=== PATIENT | male | born 1985 ===

== ENCOUNTER 2022-11-18 11:51 | Day surgery (SDC) | payer BC, OTHER ==
[2022-11-17 15:35] LABS: Absolute Lymphocytes (CBC) 1.5 K/uL (0.7-4.9); Lymphocytes % 23.3 % (15.3-44.8); MCV 76.4 fL (80-100); MPV 8.8 fL (7.6-11.3); Platelets 260 thou/uL (152-406); RBC Red Blood Cell Count 5.75 M/uL (4.33-5.43)
[2022-11-17 15:48] LABS: Potassium 3.9 mEq/L (3.5-5.1)
--- NOTE | 2022-11-17 17:01 | RAD REPORT ---
EXAM DESCRIPTION: RAD - Chest Pa And Lat (2 Views) - 11/17/2022 3:29 pm CLINICAL HISTORY: PRE OP. Hypertension COMPARISON: CHEST PA AND LAT 2 VIEW dated 09/05/2011; ABDOMEN ACUTE SERIES dated 12/18/2010 TECHNIQUE: PA and lateral views of the chest were obtained. FINDINGS: The lungs are clear. Heart size is normal and central vasculature is within normal limits. No pleural effusion or pneumothorax seen. No acute bony finding noted. IMPRESSION: No acute cardiopulmonary process.
[2022-11-18] MEDS ORDERED: Ringers Lactate 1,000 ML IV ONE ×2 (12:12→16:45)
[2022-11-18] MEDS ORDERED: METHYLPREDNISOLONE 125 MG INJ ONE (12:27)
[2022-11-18] MEDS ORDERED: ROCURONIUM 50 MG/5 ML VIAL IV ONE (13:42)
[2022-11-18] MEDS ORDERED: ONDANSETRON 4 MG/2 ML VIAL ONE (13:42)
[2022-11-18] MEDS ORDERED: LIDOCAINE 2% MPF 5 ML VIAL ONE (13:42)
[2022-11-18] MEDS ORDERED: KETOROLAC 30 MG/ML INJ ONE (13:42)
[2022-11-18] MEDS ORDERED: dexAMETHasone 10 MG/ML VIAL ONE (13:42)
[2022-11-18] MEDS ORDERED: propofoL 200 MG/20 ML VIAL IV ONE (13:42)
[2022-11-18] MEDS ORDERED: MIDAZOLAM HCL 2 MG/2 ML INJ ONE (13:42)
[2022-11-18] MEDS ORDERED: FENTANYL CITR 100 MCG/2 ML ONE ×2 (13:42→16:01)
[2022-11-18] MEDS: CEFAZOLIN SODIUM 1 GM/VIAL ONE ×2 (14:01→14:32)
[2022-11-18] MEDS ORDERED: NS 0.9% VIAL 10 ML ONE (14:29)
[2022-11-18] MEDS ORDERED: GLYCOPYRROLATE 0.2 MG/ML SYR ONE (15:12)
[2022-11-18] MEDS ORDERED: NEOSTIGMINE 1 MG/ML -10 ML VIAL ONE (15:12)
[2022-11-18] MEDS ORDERED: Mastisol Adhesive Liq ONE (15:13)
[2022-11-18] MEDS ORDERED: SUGAMMADEX SODIUM 200 MG/2 ML VIAL IV ONE (15:17)
[2022-11-18] MEDS: HYDROMORPHONE HCL 1 MG/ML INJ ONE ×2 (15:20→15:25)
--- NOTE | 2022-11-18 15:28 | P.BOP ---
Preoperative diagnosis: incarcerated left inguinal hernia Postoperative diagnosis: same Primary procedure: Open repair of incarcerattedleft inguinal hernia with mesh Estimated blood loss: <10cc Specimen: lipoma pf cord Findings: LAparoscopic attempted repair but unable to continue safely Anesthesia: General Complications: None Transferred to: Recovery Room Condition: Good
[2022-11-18] MEDS: MIDAZOLAM HCL 2 MG/2 ML INJ ONE ×2 (15:30→15:40)
[2022-11-18] MEDS ORDERED: HYDROCODONE/APAP 10/325 TAB ONE (16:30)
[2022-11-18 17:34] VITALS: BP 130/71; TEMP 97; O2SAT 100
--- NOTE | 2022-11-20 15:35 | EKG ---
Test Date: 2022-11-17 Test Time: 15:16:28 Weekend Anchor: ABRAHAM MEASUREMENT RESULTS: Intervals: Rate: 77 ME: 138 QRSD: 90 QT: 404 QTc: 457 Lehr: P: 71 ME: 138 QRS: 89 T: 11 INTERPRETIVE STATEMENTS: Poor data quality, interpretation may be adversely affected Normal sinus rhythm Normal ECG No previous ECG available for comparison Electronically Signed On 11-20-22 15:31:53 CDT by Daren Scott
== END 2022-11-18 17:20 | disposition home or self-care (01) ==
LOC: OR 11:51
PROVIDERS: ATTEND Surgery
PROC: 0YU60JZ Supplement Left Inguinal Region with Synthetic Substitute, Open Approach (ICD-10-PCS; principal; 2022-11-18 13:45)
DX: K40.30 Unilateral inguinal hernia, with obstruction, without gangrene, not specified as recurrent (principal)
CPT/HCPCS: 93005; 85025; 80048; 36415; 71046; 49507; A4216; J2704; J2710; J2001; J2250 ×2; J3010 ×2; J1100; J1170; J2930; J2405; J7120 ×2; J0690; 88302